=== PATIENT | female | born 1995 | race Caucasian/White ===

== ENCOUNTER 2018-07-28 13:18 | Emergency (ER) | payer MEDICAID, OTHER ==
[~2018-07-28] VITALS: Ht 162.6 cm; Wt 75.9 kg
[~2018-07-28 13:18] MED LIST: PREN-66 PO
[2018-07-28 13:22] VITALS: BP 114/73
[2018-07-28] MEDS ORDERED: ACETAMINOPHEN 500 MG TABLET PO ONE (13:30)
== END 2018-07-28 15:28 | disposition home or self-care (01) ==
LOC: EMS 13:22
DX: S93.402A Sprain of unspecified ligament of left ankle, initial encounter (principal); W01.0XXA Fall on same level from slipping, tripping and stumbling without subsequent striking against object, initial encounter; Y93.02 Activity, running; Y92.89 Other specified places as the place of occurrence of the external cause; Y99.0 Civilian activity done for income or pay
CPT/HCPCS: 29515